=== PATIENT | female | born 2000 | race Caucasian/White ===

== ENCOUNTER 2021-02-11 13:33 | Outpatient (CLI) | payer MEDICAID ==
[~2021-02-11] VITALS: Ht 170.2 cm; Wt 113.6 kg
[2021-02-11] MEDS ORDERED: BUSP10TA95 PO (14:01)
[2021-02-11] MEDS ORDERED: LURA80TA3 PO (14:01)
[2021-02-11] MEDS ORDERED: LITH300T3 PO (14:01)
== END 2021-02-11 14:18 | disposition home or self-care (01) ==
LOC: PREOP 13:33
PROVIDERS: ATTEND Otolaryngology Otolaryngology/Facial Plastic Surgery
DX: Z01.818 Encounter for other preprocedural examination (principal)

== ENCOUNTER → 2021-03-20 | Outpatient (CLI) | payer MEDICAID ==
[~2021-03-20] MED LIST: BUSP10TA95 PO; LITH300T3 PO; LURA80TA3 PO
== END | disposition home or self-care (01) ==
LOC: PREOP 05:34
PROVIDERS: ATTEND Otolaryngology Otolaryngology/Facial Plastic Surgery
DX: Z01.818 Encounter for other preprocedural examination (principal)

== ENCOUNTER 2021-03-27 05:49 | Day surgery (SDC) | payer MEDICAID ==
[2021-03-27] VITALS (9 sets, daily range): BP systolic 118–140; BP diastolic 71–95
[~2021-03-27] VITALS: Ht 170.2 cm; Wt 113.6 kg
[2021-03-27] MEDS ORDERED: LACTATED RINGERS 1,000 ML IV PRN (06:30)
[2021-03-27 06:35] LABS: BASOPHILS # (AUTO) 0.1 10^3/uL (0.0-0.1); BASOPHILS % (AUTO) 1 % (0-10); EOSINOPHILS # (AUTO) 0.3 10^3/uL (0.0-0.3); EOSINOPHILS % (AUTO) 2 % (0-10); HEMATOCRIT 45 % (35-52); HEMOGLOBIN 14.5 g/dL (11.5-16.0); LYMPHOCYTES # (AUTO) 3.3 10^3/uL (1.0-4.0); LYMPHOCYTES % (AUTO) 25 % (12-44); MEAN CORPUSCULAR HEMOGLOBIN 27 pg (25-34); MEAN CORPUSCULAR HGB CONC 32 g/dL (32-36); MEAN CORPUSCULAR VOLUME 83 fL (80-99); MEAN PLATELET VOLUME 10.8 fL (9.0-12.2); MONOCYTES # (AUTO) 0.8 10^3/uL (0.0-1.0); MONOCYTES % (AUTO) 6 % (0-12); NEUTROPHILS # (AUTO) 8.9 10^3/uL (1.8-7.8); NEUTROPHILS % (AUTO) 66 % (42-75); PLATELET COUNT 312 10^3/uL (130-400); WHITE BLOOD COUNT 13.4 10^3/uL (4.3-11.0)
[2021-03-27 06:48] LABS: POTASSIUM 4.4 MMOL/L (3.6-5.0)
[2021-03-27] MEDS ORDERED: BSS 15 ML ONE (06:50)
[2021-03-27] MEDS ORDERED: COCAINE HCL 4% 2 ML SYR ONE (06:50)
[2021-03-27] MEDS ORDERED: LIDOCAINE/EPI 1%-1:200,000 (XYLOCAINE) 30 ML VIAL ONE (06:50)
[2021-03-27] MEDS ORDERED: PHENYLEPHRINE 0.5% NASAL SPR (NEO-SYNEPHRINE) REG ONE (06:50)
[2021-03-27] MEDS ORDERED: NEOSTIGMINE 3 MG/3 ML VIAL ONE (06:52)
[2021-03-27] MEDS ORDERED: proPOfol 200 MG/20 ML (DIPRIVAN) VIAL IV ONE (06:52)
[2021-03-27] MEDS ORDERED: fentaNYL INJ 100 MCG/2 ML AMP ONE (06:52)
[2021-03-27] MEDS ORDERED: LIDOCAINE PF 2% 5 ML (XYLOCAINE) VIAL ONE (06:52)
[2021-03-27] MEDS ORDERED: ONDANSETRON 4 MG/2 ML (SDV) Z0FRAN ONE (06:52)
[2021-03-27] MEDS ORDERED: GLYCOPYRROLATE 0.2 MG/ML (ROBINUL) 2 ML VIAL ONE (06:52)
[2021-03-27 06:53] LABS: CREATININE SERUM 1.07 MG/DL (0.60-1.30)
[2021-03-27] MEDS ORDERED: ROCURONIUM 50 MG/5 ML (ZEMURON) VIAL IV ONE (06:53)
[2021-03-27] MEDS ORDERED: MIDAZOLAM 2 MG/2 ML (VERSED) VIAL ONE (06:53)
--- NOTE | 2021-03-27 06:54 | Progress Note-Pre Operative ---
Pre-Operative Progress Note H&P Reviewed The H&P was reviewed, patient examined and no changes noted. Date Seen by Provider: Mar 27, 2021 Time Seen by Provider: 06:30 Date H&P Reviewed: Mar 27, 2021 Time H&P Reviewed: :30 Pre-Operative Diagnosis: Bleeding Left NaSAL Mass SYLVIA NAIR MD Mar 27, 2021 06:54
[2021-03-27] MEDS ORDERED: MUPIROCIN 2% OINT 22 GM (BACTROBAN) TUBE ONE (07:03)
[2021-03-27] MEDS ORDERED: ONDANSETRON 4 MG/2 ML (SDV) Z0FRAN IVP PRN (07:30)
[2021-03-27] MEDS ORDERED: morphine INJ 10 MG/ML 1ML (SYR OR VIAL) IVP ONE (07:30)
[2021-03-27] MEDS ORDERED: SEVOFLURANE (ULTANE) 15 ML INHAL SOLN ONE (08:05)
--- NOTE | 2021-03-27 08:07 | Progress Note-Post Operative ---
Post-Operative Progess Note Surgeon (s)/Roster Clerk (s) Surgeon SYLVIA NAIR MD Roster Clerk n/a Pre-Operative Diagnosis Bleeding Left NaSAL Mass Post-Operative Diagnosis same Post-Op Procedure Note Date of Procedure: Mar 27, 2021 Name of Procedure Performed: Excision of Left INtranasal Mass Description & Findings Description and Findings: n/a Anesthesia Type get Estimated Blood Loss minimal Packing dissolvable nasal packing on tleft side. Specimen(s) collected/removed left intranasal mass to pathology SYLVIA NAIR MD Mar 27, 2021 08:06
[2021-03-27] MEDS ORDERED: NS IV 1000 ML 1,000 ML IV SCH (08:15)
[2021-03-27] MEDS ORDERED: APAP 325 MG/10.15 ML LIQ (TYLENOL) UDC PO PRN (08:15)
[2021-03-27] MEDS ORDERED: HYDROcodone/APAP 5 MG/325 MG (LORTAB) TAB PO PRN (08:15)
[2021-03-27] MEDS ORDERED: ACHD5005 PO (08:35)
--- NOTE | 2021-03-27 10:04 | Anesthesia-General Post-Op ---
General Patient Condition Mental Status/LOC: Same as Preop Cardiovascular: Satisfactory Nausea/Vomiting: Absent Respiratory: Satisfactory Pain: Controlled Complications: Absent Post Op Complications Complications None Follow Up Care/Instructions Patient Instructions None needed. Anesthesia/Patient Condition Patient Condition Patient is doing well, no complaints, stable vital signs, no apparent adverse anesthesia problems. JESSICA JIMENEZ DO Mar 27, 2021 10:04
== END 2021-03-27 09:55 | disposition home or self-care (01) ==
LOC: SDC 05:49
PROVIDERS: ATTEND Otolaryngology Otolaryngology/Facial Plastic Surgery
DX: D18.09 Hemangioma of other sites (principal)
CPT/HCPCS: 36415; 80048; 84703; 85025; 87081; 87636